=== PATIENT | male | born 1950 | race Two or more races ===

== ENCOUNTER 2024-07-06 09:15 | Emergency (ER) | payer OTHER ==
[~2024-07-06] VITALS: Ht 170.2 cm; Wt 97.0 kg
[2024-07-06 10:08] VITALS: BP 142/82; PULSE 105; RESP 16; TEMP 99.4; O2SAT 95
--- NOTE | 2024-07-06 10:17 | ED.PDOC ---
History of Present Illness(SKN HPI Comments A 74 YEAR OLD MALE PRESENTS TO THE ED WITH COMPLAINT OF RASH AND BLISTERS OF RIGHT HAND. PATIENT STATES HE HAS BEEN EXPERIENCING PAINFUL BLISTERS/RASH TO HIS RIGHT HAND FOR THE PAST 4 DAYS. PATIENT REPORTS THE PAIN RADIATES TO HIS RIGHT AXILLARY REGION AND DESCRIBES IT A SHARP PAIN. PATIENT DENIES FEVER, CHILLS, SHORTNESS OF BREATH, CHEST PAIN, ABDOMINAL PAIN, NAUSEA, VOMITING, HEADACHE, OR OTHER COMPLAINTS. NO OTHER SYMPTOMS OR MODIFYING FACTORS AT THIS TIME. PATIENT IS ALERT, ORIENTED X 4, AND HAS STEADY GAIT. Chief Complaint: Upper Extremity Time Seen by MD: 09:25 History of Present Illness: Nurses Notes, Medications, Allergies Allergies: Coded Allergies: NO KNOWN ALLERGIES (Unverified , 07/06/24) Home Meds Active Scripts Gabapentin (Gabapentin) 300 Mg Cap, 300 MG PO BID, #30 CAP Prov:IDALIA ANN 07/06/24 Triamcinolone Acetonide (Triamcinolone Acetonide) 0.025 % Cre, 1 APPLIC TOP BID, #30 GRAMS Prov:IDALIA ANN 07/06/24 Acyclovir (Acyclovir) 800 Mg Tab, 800 MG PO 5XD, #35 TAB Prov:IDALIA ANN 07/06/24 Information Source: Patient Mode of Arrival: Ambulatory Severity: Moderate Timing: Days Duration: Since onset, Days Prehospital treatment: None Location: Hand (RIGHT HAND) Mechanism: Spontaneous Onset Developed: Rash Occurence: Indoors Object: None Condition of Object: None Retained Foreign Body: Unknown Wound Type: Other (BLISTER) Immunization Status of Animal: NA Tetanus: Unknown History of: None Associated Signs and Symptoms: Redness, Pain Past Medical History PAST MEDICAL HISTORY: Arthritis, High Lipids, HTN Surgical History: Denies all surgeries Family History Family History: Reviewed,noncontributory to illness Social History Smoker: Non-Smoker Alcohol: Denies ETOH Use Drugs: Denies Drug Use Lives In: Home Constitutional: denies: chills, diaphoresis, fatigue, fever, malaise, sweats, weakness, others EENTM: denies: blurred vision, double vision, ear bleeding, ear discharge, ear drainage, ear pain, ear ringing, eye pain, eye redness, hearing loss, mouth pain, mouth swelling, nasal discharge, nose bleeding, nose congestion, nose pain, photophobia, tearing, throat pain, throat swelling, voice changes, others Respiratory: denies: cough, hemoptysis, orthopnea, SOB at rest, shortness of breath, SOB with excertion, stridor, wheezing, others Cardiovascular: denies: chest pain, dizzy spells, diaphoresis, Dyspnea on exertion, edema, irregular heart beat, left arm pain, lightheadedness, palpitations, PND, syncope, others Gastrointestinal: denies: abdomen distended, abdominal pain, blood streaked bowels, constipated, diarrhea, dysphagia, difficulty swallowing, hematemesis, melena, nausea, poor appetite, poor fluid intake, rectal bleeding, rectal pain, vomiting, others Genitourinary: denies: burning, dysuria, flank pain, frequency, hematuria, incontinence, penile discharge, penile sore, pain, testicle pain, testicle swelling, urgency, others Neurological: denies: dizziness, fainting, headache, left sided numbness, left sided weakness, numbness, paresthesia, pre-existing deficit, right sided numbness, right sided weakness, seizure, speech problems, tingling, tremors, weakness, others Musculoskeletal: denies: back pain, gout, joint pain, joint swelling, muscle p ain, muscle stiffness, neck pain, others Integumetry: reports: lesions, rash, others (BLISTERS OF RIGHT HAND); denies: bruises, change in color, change in hair/nails, dryness, laceration, lumps, wounds Allergic/Immunocompromised: denies: Difficulty Healing, Frequent Infections, Hives, Itching, others Hematologic/Lymphatic: denies: anemia, blood clots, easy bleeding, easy bruising, swollen glands, others Endocrine: denies: excessive hunger, excessive sweating, excessive thirst, excessive urination, flushing, intolerance to cold, intolerance to heat, unexplained weight gain, unexplained weight loss, others Psychiatric: denies: anxiety, bipolar disorder, depression, hopeless, panic disorder, schizophrenia, sleepless, suicidal, others All Other Systems: Reviewed and Negative Physical Exam General Appearance: No Apparent Distress, Normal HEENT: Normal ENT Inspection, PERRL/EOMI, Pharynx Normal, TMs Normal Neck: Full Range of Motion, Non-Tender, Normal, Normal Inspection Respiratory: Chest Non-Tender, Lungs Clear, No Accessory Muscle Use, No Respiratory Distress, Normal Breath Sounds Cardiovascular: No Edema, No JVD, No Murmur, No Gallop, Normal Peripheral Pulses, Regular Rate/Rhythm Breast Exam: Deferred Gastrointestinal: No Organomegaly, Non Tender, No Pulsatile Mass, Normal Bowel Sounds, Soft Genitalia: Deferred Pelvic: Deferred Rectal: Deferred Extremities: No calf tenderness, Normal capillary refill, Normal range of motion, No pedal edema, Tender (WITH VESICLE SKIN RASH ON RIGHT PALM AND MILD DORSAL HAND.+HERPES ZOSTER. ) Musculoskeletal : Apperance: Normal Neurologic: Alert, technician automated equipment II-XII nml as Tested, No Motor Deficits, Normal Affect, Normal Mood, No Sensory Deficits Cerebellar Function: Normal Reflexes: Normal Skin: Dry, Rash (A GROUP OF ERYTHEMA AND VESICLE SKIN RASH ON RIGHT PALM TO RIGHT DORSAL HAND, NO SWELLING AND PUS DRAINAGE, +HERPES ZOSTER. ), Warm Peripheral Pulses: 2+ carotid (R), 2+ carotid (L), 2+ Radial (R), 2+ Radial (L) Lymphatic: No Adenopathy Was a procedure done? Was a procedure done?: No Differential Diagnosis (INTG) Differential Diagnosis: N/A Differential Diagnosis: Atopic dermatitis, Contact Dermatitis, Herpes Zoster/Simplex, Urticaria, Other (BLISTERS OF RIGHT HAND) Differential Diagnosis: N/A Abscess: N/A Differential Diagnosis: N/A X-Ray, Labs, Meds, VS Vital Signs Date Time Temp Pulse Resp B/P (MAP) Pulse Ox O2 Delivery O2 Flow Rate FiO2 07/06/24 10:08 105 16 95 Room Air 07/06/24 10:08 99.4 105 16 142/82 (102) 95 99.4 07/06/24 09:31 99.4 105 16 142/82 (102) 95 99.4 X-Ray, Labs, Meds, VS Comment EXTERNAL MEDICAL RECORDS REVIEWED: [NONE] INDEPENDENT HISTORIANS: [NONE] SOCIAL DETERMINANTS OF HEALTH: [NONE] LABS ORDERED: NONE REVIEWED AND INTERPRETED RESULTS: NONE IMAGING ORDERED: NONE TREATMENTS ORDERED: NONE PROCEDURES PERFORMED: NONE CRITICAL CARE TIME: NONE I HAVE DISCUSSED THE PATIENT WITH THE ATTENDING PHYSICIAN DR. REDDY AND HE AGREES WITH THE PATIENT'S PLAN OF CARE AND DISPOSITION. BASED ON HISTORY OF PRESENT ILLNESS, AND PHYSICAL EXAM, PATIENT WILL BE DISCHARGED HOME. DISCUSSED PLAN FOR DISCHARGE HOME WITH RX [ACYCLOVIR, TRIAMCINOLONE CREAM, AND GABAPENTIN]. MEDICATION WARNINGS GIVEN. SHARED DECISION MAKING: PATIENT INSTRUCTED TO FOLLOW UP WITH PRIMARY CARE PROVIDER IN 1-2 DAYS FOR RE-EVALUATION OF SYMPTOMS. PATIENT VERBALIZES UNDERSTANDING TO RETURN TO ED FOR NEW OR WORSENING SYMPTOMS OR IF FOLLOW UP WITH PCP CANNOT BE OBTAINED. PATIENT FEELS COMFORTABLE GOING HOME AT THIS TIME. ALL QUESTIONS ADDRESSED AT TIME OF DISCHARGE. Time of 1ST Reevaluation: 10:35 Reevaluation 1ST: Improved Patient Education/Counseling: Diagnosis, Treatment, Need For Follow Up Family Education/Counseling: Diagnosis, Treatment, Need For Follow Up Medical Screening: No EMC Exist At This Time Departure 1 Departure Time of Disposition: 10:35 Impression: Primary Impression: Herpes zoster Qualified Codes: B02.9 - Zoster without complications Disposition: HOME / SELF CARE / HOMELESS Condition: Stable Additional Instructions: FOLLOW-UP WITH PCP IN 1 TO 2 DAYS. TAKE MEDICATIONS PRESCRIBED. RETURN TO ED FOR ANY NEW OR WORSENING SYMPTOMS. e-Prescriptions Gabapentin (Gabapentin) 300 Mg Cap 300 MG PO BID, #30 CAP Prov: IDALIA ANN 07/06/24 Triamcinolone Acetonide (Triamcinolone Acetonide) 0.025 % Cre 1 APPLIC TOP BID, #30 GRAMS Prov: IDALIA ANN 07/06/24 Acyclovir (Acyclovir) 800 Mg Tab 800 MG PO 5XD, #35 TAB Prov: IDALIA ANN 07/06/24 Discharged With: Self Critical Care Note Critical Care Time?: No Stability Stability form required: No I personally scribed for IDALIA ANN ([email or web address]) on 07/06/24 at 10:17. Electronically submitted by Ayden Quinn ([email or web address]). IDALIA ANN July 06, 2024 10:17
[2024-07-06] MEDS ORDERED: ACYC1TAB3 PO (10:24)
[2024-07-06] MEDS ORDERED: TRIA0.02 TOP (10:24)
[2024-07-06] MEDS ORDERED: GABA-1250 PO (10:24)
== END 2024-07-06 10:32 | disposition home or self-care (01) ==
LOC: ER 09:15
DX: B02.9 Zoster without complications (principal); E78.5 Hyperlipidemia, unspecified; I10 Essential (primary) hypertension; Z79.899 Other long term (current) drug therapy